=== PATIENT | female | born 1980 | race Caucasian/White ===

== ENCOUNTER 2018-01-17 12:35 | Emergency (ER) | payer OTHER ==
[2018-01-17 12:40] VITALS: BP 114/98; PULSE 74; RESP 20; TEMP 98.3
[2018-01-17] MEDS ORDERED: Acetaminophen-Codeine 300-30mg TAB PO STA (12:47)
--- NOTE | 2018-01-17 12:49 | ED ---
ENT HPI - General Chief complaint: Dental/Oral Stated complaint: Dental Time Seen by Provider: 01/17/18 12:41 Source: patient, RN notes reviewed Mode of arrival: ambulatory Limitations: no limitations - History of Present Illness Initial comments: 37-year-old female presents emergency department for right-sided dental pain. She's had a known dental fracture with started becoming painful today. Patient states that she's had mild facial swelling no fever no chills. She did try some ibuprofen earlier no relief. Patient denies any difficulty swallowing no headache no dizziness. Patient states that she had a leave work because of pain. States pain radiates up her face. - Related Data Previous Rx's Medication Instructions Recorded Ibuprofen [Motrin] 800 mg PO Q6H #30 tab 01/17/18 Penicillin V Potassium [Pen Vee K] 500 mg PO QID #40 tablet 01/17/18 Allergies Allergy/AdvReac Type Severity Reaction Status Date / Time No Known Allergies Allergy Verified 01/17/18 12:40 Review of Systems ROS Statement: Those systems with pertinent positive or pertinent negative responses have been documented in the HPI. ROS Other: All systems not noted in ROS Statement are negative. Past Medical History Past Medical History: No Reported History History of Any Multi-Drug Resistant Organisms: None Reported Past Surgical History: No Surgical Hx Reported Past Psychological History: No Psychological Hx Reported Smoking Status: Current every day smoker Past Alcohol Use History: Occasional Past Drug Use History: None Reported General Exam Limitations: no limitations General appearance: alert, in no apparent distress Head exam: Present: atraumatic, normocephalic, normal inspection Eye exam: Present: normal appearance, PERRL, EOMI. Absent: scleral icterus, conjunctival injection, periorbital swelling ENT exam: Present: mucous membranes moist, TM's normal bilaterally, normal external ear exam. Absent: normal oropharynx (Dental fracture #32, no drainable abscess) Neck exam: Present: normal inspection, full ROM. Absent: tenderness, meningismus, lymphadenopathy Respiratory exam: Present: normal lung sounds bilaterally. Absent: respiratory distress, wheezes, rales, rhonchi, stridor Cardiovascular Exam: Present: regular rate, normal rhythm, normal heart sounds. Absent: systolic murmur, diastolic murmur, rubs, gallop, clicks Course Vital Signs 01/17/18 12:37 Temperature 98.3 F Pulse Rate 74 Respiratory 20 Rate Blood Pressure 114/98 O2 Sat by Pulse 99 Oximetry Medical Decision Making - Medical Decision Making 37-year-old female presents emergency from for right-sided dental pain. Patient has dental fracture we started antibiotics and pain medication. I did offer dental block patient refused. Patient follow-up with dentist tomorrow return for any worsening symptoms. Disposition Clinical Impression: Fracture of tooth, Dental infection Disposition: HOME SELF-CARE Condition: Stable Instructions: Toothache (ED) Additional Instructions: Please return to the Emergency Department if symptoms worsen or any other concerns. Prescriptions: Ibuprofen [Motrin] 800 mg PO Q6H #30 tab Penicillin V Potassium [Pen Vee K] 500 mg PO QID #40 tablet Is patient prescribed a controlled substance at d/c from ED?: No Referrals: Casey Tomas MD [Primary Care Provider] - 1-2 days Time of Disposition: 12:49
[2018-01-17] MEDS ORDERED: ACET/COD 300 MG/30 MG STARTER PACK 6 TAB BTL PO STA (12:57)
== END 2018-01-17 13:15 | disposition home or self-care (01) ==
LOC: EC 12:35
DX: K04.7 Periapical abscess without sinus (principal); S02.5XXA Fracture of tooth (traumatic), initial encounter for closed fracture; F17.200 Nicotine dependence, unspecified, uncomplicated; Z53.20 Procedure and treatment not carried out because of patient's decision for unspecified reasons; X58.XXXA Exposure to other specified factors, initial encounter
CPT/HCPCS: 99283